=== PATIENT | female | born 1970 | race Caucasian/White ===

== ENCOUNTER → 2016-09-07 | Outpatient (CLI) | payer BC ==
--- NOTE | 2016-09-07 13:47 | US ---
Ultrasound Pelvis Complete (Transabdominal and Endovaginal) Including Duplex/Doppler Imaging History: N 92.0, heavy bleeding with periods Technique: Transabdominal and endovaginal ultrasound images were obtained. Endovaginal images obtain ed for better evaluation of the uterine myometrium and adnexa. Duplex/Doppler imaging of adnexa. Findings: Uterus measures 10 x 6 x 4 cm. Endometrial thickness is 12 mm. Hyperechoic endometrial shaun ypoid lesion measuring 6 x 5 x 4 mm identified near the fundus. No definite uterine leiomyomata. Right ovary measures 2.6 x 2.2 x 1.7 cm. Left ovary measures 3 x 2 x 2.4 cm. Normal follicles in both ovaries. No adnexal masses. No significant free fluid in the pelvis. Color Doppler flow to both ova benji without torsion. Impression: 1. Hyperechoic endometrial polyp measures 6 x 5 x 4 mm. Consider endometrial biopsy. 2. Endometrial thickness 12 mm. 3. No adnexal masses or ovarian torsion. 4. No ascites.
== END ==
LOC: FIMAGING 12:47
PROVIDERS: ATTEND Obstetrics & Gynecology
DX: N84.0 Polyp of corpus uteri (principal)

== ENCOUNTER → 2016-09-12 | Outpatient (CLI) | payer BC ==
--- NOTE | 2016-09-12 11:37 | DX ---
Right Foot - 3 views Indication: Heel and dorsal foot pain. Evaluate for spur and stress fracture. Technique: AP, oblique, and lateral views. Comparison: Right foot series dated October 07, 2012. Findings: Minimal osteoarthritis of the first metatarsophalangeal joint and small erosions along the medial aspect of the first metatarsal head are unchanged. Joint spaces are otherwise well preserved. The remote fracture the proximal phalanx fifth toe is completely healed since 2012. No new fracture o r periosteal reaction to suggest a developing stress fracture. No plantar spur. Mild osteoarthritis at the calcaneal cuboid, calcaneal navicular, and navicular cubo id is slightly worse evidenced by narrowing of the joint spaces, subchondral sclerosis and cyst forma tion. Impression: 1. No stress fracture. 2. Minimal osteoarthritis first metatarsophalangeal joint is unchanged. 3. 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 4. No plantar spur or erosive arthropathy.
== END ==
LOC: BMCIMAGING 10:47
PROVIDERS: ATTEND Podiatrist Foot & Ankle Surgery
DX: M79.671 Pain in right foot (principal)

== ENCOUNTER 2016-10-20 11:09 | Day surgery (SDC) | payer BC ==
[2016-10-20] MEDS ORDERED: LIDOCAINE 1% 2 ML INJ ONE (11:56)
[2016-10-20] MEDS ORDERED: LR 1,000 ML IV ONE (12:07)
[2016-10-20] MEDS ORDERED: MIDAZOLAM 2 MG/2 ML VIAL ONE (12:55)
[2016-10-20] MEDS ORDERED: LIDOCAINE 2% 5 ML SDV ONE (13:02)
[2016-10-20] MEDS ORDERED: fentaNYL 100 MCG/2 ML INJ ONE (13:03)
[2016-10-20] MEDS ORDERED: PROPOFOL/EMULSION 500 MG/50 ML BOTTLE IV ONE (13:04)
[2016-10-20] MEDS ORDERED: ATROPINE SULFATE 1 MG/10 ML SYR ONE (14:00)
[2016-10-20] MEDS ORDERED: ATROPINE SULFATE 1 MG/ML VIAL IVP PRN (15:03)
--- NOTE | 2016-10-20 19:08 | GOP ---
[f rep st] OPERATIVE REPORT DATE OF OPERATION: 10/20/2016 SURGEON: Brooklynn Melissa MD CART PUSHER: None. ANESTHESIA: General. PREOPERATIVE DIAGNOSIS: 1. Menorrhagia. 2. Endometrial polyp. POSTOPERATIVE DIAGNOSIS: 1. Menorrhagia. 2. Endometrial polyp. PROCEDURE PERFORMED: 1. Dilation and curettage. 2. Hysteroscopy with morcellation of endometrial polyp. FINDINGS: 1. Exam under anesthesia revealed an anteverted uterus and no adnexal masses. 2. Intraoperative findings revealed an endometrial cavity found along the left uterine sidewall near the left ostia along with thickening along the anterior uterine wall. Bilateral ostia were seen cl early. SPECIMENS: Endometrial curettings and endometrial polyp. INDICATIONS: Patient is a 46-year-old 2, para 2 female with a history of recurrent menorrha monserrat with an ultrasound showing a 6 x 4 x 5 mm polyp. The patient had a negative Pap and negative en dometrial biopsy, and agreed to proceed with hysteroscopy to remove the polyp. DESCRIPTION OF PROCEDURE: The patient was taken to the operating room where general anesthesia was found to be adequate. Patient was prepared and draped in normal sterile fashion in the dorsal litho marilou position. A weighted speculum was placed in the patient's vagina, and a Holland retractor used to visualize the cervix clearly. A single-toothed tenaculum was placed on the anterior lip of the cer vix, and the cervix was gently dilated up to 6 mm using Hegar dilators with no immediate complicatio ns. A 5 mm 0-degree Truclear hysteroscope was placed into the cervix and advanced into the uterine cavity, and the endometrial cavity was visualized clearly. The polyp was seen along the left uterin e sidewall. Pictures were taken at this time; however, unfortunately at the end of the case, it was determined that those pictures did not register to be printed; therefore, the only pictures obtaine d were after the morcellation of the endometrial polyp and visual dilation and curettage. The 2.9 m orcellator was placed through the hysteroscope into the uterine cavity, and the polyp was morcellate d and removed under direct visualization. A visual curettage was then performed, sampling the entir e lining of the endometrium under direct visualization. The hysteroscope was then removed, and a sh denisa curettage was then performed, and all tissue was sent together as endometrial curettings. The s jing-tooth tenaculum was removed the cervix, and hemostasis was obtained with silver nitrate. All instruments were removed from the patient's vagina, and she was awakened from anesthesia without any complications. She was then transferred to PACU in stable and good condition. COMPLICATIONS: None. DRAINS: None. /[id number]/MODL
== END 2016-10-20 16:30 | disposition home or self-care (01) ==
LOC: FSGY 11:09
PROVIDERS: ATTEND Obstetrics & Gynecology
PROC: 0U598ZZ Destruction of Uterus, Via Natural or Artificial Opening Endoscopic (ICD-10-PCS; principal; 2016-10-20 12:30)
PROC: 0UDB8ZZ Extraction of Endometrium, Via Natural or Artificial Opening Endoscopic (ICD-10-PCS; principal; 2016-10-20 12:30)
DX: N84.0 Polyp of corpus uteri (principal); N92.0 Excessive and frequent menstruation with regular cycle; F41.8 Other specified anxiety disorders; Z80.41 Family history of malignant neoplasm of ovary; Z88.0 Allergy status to penicillin
CPT/HCPCS: 58558; C1782; J0461; J2250; J2704; J3010

== ENCOUNTER → 2017-02-22 | Outpatient (CLI) | payer BC | LOC: BMCIMAGING 12:53 | PROVIDERS: ATTEND Obstetrics & Gynecology | DX: Z12.31 Encounter for screening mammogram for malignant neoplasm of breast (principal); Z80.3 Family history of malignant neoplasm of breast | CPT/HCPCS: G0202 ==

== ENCOUNTER → 2017-12-04 | Outpatient (CLI) | payer BC | LOC: CIMAGING 14:41 | PROVIDERS: ATTEND Obstetrics & Gynecology | DX: R14.0 Abdominal distension (gaseous) (principal); Z80.41 Family history of malignant neoplasm of ovary | CPT/HCPCS: 76856-PO ==